=== PATIENT | female | born 1945 | race Caucasian/White ===

== ENCOUNTER 2017-07-15 11:42 | Inpatient (IN) | payer OTHER, MEDICARE ==
[~2017-07-15] VITALS: Ht 160 cm; Wt 65.9 kg
[2017-07-15 12:55] VITALS: BP 144/92
[2017-07-15] MEDS ORDERED: PANT40TA5 PO (13:55)
[2017-07-15] MEDS ORDERED: ESTR0.5T3 PO (13:56)
[2017-07-15] MEDS ORDERED: DICL50TA4 PO (13:56)
[2017-07-15] MEDS ORDERED: [UNRECOGNIZED DRUG - CODE] PO (13:56)
[2017-07-15] MEDS ORDERED: ZOLP12.52 PO (13:56)
[2017-07-15] MEDS ORDERED: PROG100C16 PO (13:58)
[2017-07-15] MEDS ORDERED: CEFAZOLIN PMX 1GM/50ML 50 ML IVPB ONE (14:00)
[2017-07-15 14:37] LABS: BASOPHILS # (AUTO) 0.03 x10^3/uL (0-0.1); BASOPHILS % (AUTO) 0 % (0-1); EOSINOPHILS # (AUTO) 1.03 x10^3/uL (0-0.4); EOSINOPHILS % (AUTO) 14 % (1-7); LYMPHOCYTES % (AUTO) 30 % (22-44); MD NO; MEAN CORPUSCULAR HEMOGLOBIN 30.8 pg (27.0-34.8); MEAN CORPUSCULAR HGB CONC 33.6 g/dL (32.4-35.8); MEAN CORPUSCULAR VOLUME 91.8 fL (80-100); MEAN PLATELET VOLUME 9.3 fL (7.4-10.4); MONOCYTES # (AUTO) 0.52 x10^3/uL (0.2-0.8); MONOCYTES % (AUTO) 7 % (2-9); NEUTROPHILS # (AUTO) 3.54 x10^3/uL (1.8-6.8); NEUTROPHILS % (AUTO) 48 % (42-75); PLATELET COUNT 220 x10^3/uL (130-400); RED BLOOD COUNT 4.61 x10^6/uL (3.82-5.3); RED CELL DISTRIBUTION WIDTH 14.6 % (9.6-15.2)
[2017-07-15] MEDS: D5%-0.45% NACL 1,000 ML IV SCH ×2 (14:38)
[2017-07-15 14:45] LABS: ANION GAP 7 mmol/L (5-15); CHLORIDE 111 mmol/L (98-107); CREATININE 0.89 mg/dL (0.55-1.02)
[2017-07-15 14:57] LABS: INTERNATIONAL NORMALIZED RATIO 0.99 (0.93-1.1); PROTHROMBIN TIME 10.2 Seconds (9.6-11.5)
[2017-07-15] MEDS ORDERED: CEFAZOLIN 1,000 MG ONE (16:46)
[2017-07-15] MEDS ORDERED: FENTANYL PF 100 MCG/2ML ONE (16:46)
[2017-07-15] MEDS ORDERED: CEFAZOLIN PMX 1GM/50ML 50 ML ONE (16:46)
[2017-07-15] MEDS ORDERED: MIDAZOLAM 1 MG/ML, 5ML ONE (16:46)
[2017-07-15] MEDS ORDERED: LIDOCAINE 2%, 10ML ONE (16:46)
[2017-07-15 18:18] VITALS: BP 164/96
[2017-07-15] MEDS ORDERED: ZOLPIDEM 10MG TABLET PO PRN (19:00)
[2017-07-15] MEDS ORDERED: DICLOFENAC 50 MG TABLET.DR PO PRN (19:00)
[2017-07-15 19:14] VITALS: BP 137/89
[2017-07-15] MEDS: ACETAMINOPHEN 325 MG TABLET PO PRN ×2 (19:29→23:43)
[2017-07-15] MEDS: SODIUM CHLORIDE FLUSH 10ML SYR IVF SCH (21:56)
[2017-07-16] MEDS: CEFAZOLIN PMX 1GM/50ML 50 ML IVPB SCH ×2 (02:11→11:13)
[2017-07-16 02:12] VITALS: BP 122/82
[2017-07-16] MEDS: ACETAMINOPHEN 325 MG TABLET PO PRN ×2 (05:04→09:37)
[2017-07-16] MEDS: D5%-0.45% NACL 1,000 ML IV SCH ×2 (06:00→14:00)
[2017-07-16 07:30] VITALS: BP 135/89
[2017-07-16] MEDS ORDERED: ESTRADIOL VALERATE PO SCH (09:00)
[2017-07-16] MEDS ORDERED: PANTOPROZOLE 40MG TABLET PO SCH (09:00)
[2017-07-16] MEDS ORDERED: PROGESTERONE 100 MG CAPSULE PO SCH (09:00)
[2017-07-16] MEDS ORDERED: ONDANSETRON ODT 4 MG ONE (09:32)
[2017-07-16] MEDS: SODIUM CHLORIDE FLUSH 10ML SYR IVF SCH (09:36)
[2017-07-16] MEDS ORDERED: ONDANSETRON ODT 4 MG PO PRN (10:00)
[2017-07-16] MEDS ORDERED: METO25TA91 PO (12:05)
[2017-07-16 13:05] VITALS: BP 130/85
== END 2017-07-16 16:00 | disposition home or self-care (01) | DRG 244 ==
LOC: 5SO 12:04 → DCLOUNGE 07-16 15:53
PROVIDERS: ADMIT Internal Medicine Cardiovascular Disease; ATTEND Internal Medicine Cardiovascular Disease
PROC: 0JH606Z Insertion of Pacemaker, Dual Chamber into Chest Subcutaneous Tissue and Fascia, Open Approach (ICD-10-PCS; principal; 2017-07-15)
PROC: 02H63JZ Insertion of Pacemaker Lead into Right Atrium, Percutaneous Approach (ICD-10-PCS; 2017-07-15)
PROC: 02HK3JZ Insertion of Pacemaker Lead into Right Ventricle, Percutaneous Approach (ICD-10-PCS; 2017-07-15)
DX: I44.2 Atrioventricular block, complete (principal); I10 Essential (primary) hypertension
CPT/HCPCS: 33208; 36415; 71045; 80048; 85025; 85610; 93005; 99156; 99157; C1779; C1785; C1892; J0690; J2250; J3010; J3490; Q0162

== ENCOUNTER → 2018-09-22 | Outpatient (CLI) | payer OTHER, MEDICARE ==
[~2018-09-22] MED LIST: DICL50TA4 PO; ESTR0.5T3 PO; METO25TA91 PO; PANT40TA5 PO; PROG100C16 PO; ZOLP12.52 PO; [UNRECOGNIZED DRUG - CODE] PO
== END | disposition home or self-care (01) ==
LOC: RAD 14:47
PROVIDERS: ATTEND Nurse Practitioner
DX: R06.02 Shortness of breath (principal)
CPT/HCPCS: 71046

== ENCOUNTER → 2019-06-01 | Outpatient (CLI) | payer OTHER, MEDICARE | END | disposition home or self-care (01) | LOC: CFH 14:52 | PROVIDERS: ATTEND Internal Medicine Cardiovascular Disease | DX: I36.1 Nonrheumatic tricuspid (valve) insufficiency (principal); I11.9 Hypertensive heart disease without heart failure | CPT/HCPCS: 93306 ==

== ENCOUNTER → 2019-10-07 | Outpatient (CLI) | payer OTHER, MEDICARE | END | disposition home or self-care (01) | LOC: RAD 13:28 | PROVIDERS: ATTEND Orthopaedic Surgery | DX: M75.121 Complete rotator cuff tear or rupture of right shoulder, not specified as traumatic (principal) ==

== ENCOUNTER 2019-10-28 10:10 | Day surgery (SDC) | payer OTHER, MEDICARE ==
[~2019-10-28] VITALS: Ht 160 cm; Wt 60.6 kg
[~2019-10-28 10:10] MED LIST changes: +ATEN50TA41 PO; +BUPIVACAINE/PF 0.25% ONE; +CHOL10003 PO; +DIAZ2TAB3 PO; +LIDOCAINE/PF 1%-EPI 1:200K, 30 ML ONE; +SERT100T32 PO; +TRIA1CAP PO; +VERA80TA25 PO
[2019-10-28] MEDS ORDERED: MIDAZOLAM 1 MG/ML, 2ML ONE (10:21)
[2019-10-28] MEDS ORDERED: FENTANYL PF 100 MCG/2ML ONE (10:21)
[2019-10-28] MEDS ORDERED: PROG100C16 PO (10:47)
[2019-10-28] MEDS ORDERED: PANT40TA5 PO (10:47)
[2019-10-28] MEDS ORDERED: ZOLP12.52 PO (10:47)
[2019-10-28] MEDS ORDERED: METO25TA35 PO (10:47)
[2019-10-28] MEDS ORDERED: DILT120T3 PO (10:47)
[2019-10-28] MEDS ORDERED: ESTRADIOL PO (10:47)
[2019-10-28] MEDS ORDERED: DICL75TA3 PO (10:47)
[2019-10-28] MEDS ORDERED: ATOR20TA37 PO (10:47)
[2019-10-28] MEDS ORDERED: LISI5TAB7 PO (10:47)
[2019-10-28] MEDS ORDERED: LACTATED RINGERS 1,000 ML IV SCH (10:52)
[2019-10-28] MEDS ORDERED: ACETAMINOPHEN 500 MG TABLET ONE (10:57)
[2019-10-28] MEDS ORDERED: CHLORHEXIDINE 15 ML UDC ONE (10:58)
[2019-10-28 10:59] VITALS: BP 132/95
[2019-10-28] MEDS ORDERED: CHLORHEXIDINE 15 ML UDC MM ONE (11:00)
[2019-10-28] MEDS ORDERED: ACETAMINOPHEN 500 MG TABLET PO ONE (11:00)
[2019-10-28 11:29] LABS: ALANINE AMINOTRANSFERASE 18 U/L (12-78); ALBUMIN 3.9 g/dL (3.4-5.0); ANION GAP 6 mmol/L (5-15); CALCIUM 9.7 mg/dL (8.5-10.1); CHLORIDE 113 mmol/L (98-107)
[2019-10-28] MEDS ORDERED: APREPITANT 40 MG CAPSULE PO ONE (11:30)
[2019-10-28 11:32] LABS: ALKALINE PHOSPHATASE 79 U/L (45-117); BILIRUBIN,TOTAL 0.5 mg/dL (0.2-1.0); CREATININE 0.87 mg/dL (0.55-1.02); TOTAL PROTEIN 6.9 g/dL (6.4-8.2)
[2019-10-28] MEDS ORDERED: PHENYLEPHRINE 10 MG/ML ONE (11:43)
[2019-10-28] MEDS ORDERED: PROMETHAZINE 12.5 MG SUPP PR PRN (12:30)
[2019-10-28] MEDS ORDERED: ONDANSETRON 2MG/ML, 2ML IVPush PRN (12:30)
[2019-10-28] MEDS ORDERED: HYDROmorphone 1 MG/ML, 1ML INJ IVPush PRN (12:30)
[2019-10-28] MEDS ORDERED: PROMETHAZINE 25 MG SUPP PR PRN (12:30)
[2019-10-28] MEDS ORDERED: HYDROcodone/APAP 7.5-325MG/15ML UDC PO PRN (12:30)
[2019-10-28] MEDS ORDERED: FENTANYL PF 100 MCG/2ML IV PRN (12:30)
[2019-10-28] MEDS ORDERED: ROCURONIUM 10MG/ML,5ML ONE (12:34)
[2019-10-28] MEDS ORDERED: DEXAMETHASONE 4 MG/ML, 1ML ONE (12:34)
[2019-10-28] MEDS ORDERED: NEOSTIGMINE 1 MG/ML, 10ML ONE (12:34)
[2019-10-28] MEDS ORDERED: PROPOFOL 10 MG/ML, 20ML ONE (12:34)
[2019-10-28] MEDS ORDERED: SUCCINYLCHOLINE 20 MG/ML, 10ML ONE (12:34)
[2019-10-28] MEDS ORDERED: GLYCOPYRROLATE 0.2MG/1ML, 5ML ONE (12:34)
[2019-10-28] MEDS ORDERED: CEFAZOLIN 1,000 MG ONE (12:34)
[2019-10-28] MEDS ORDERED: ONDANSETRON 2MG/ML, 2ML ONE (12:34)
== END 2019-10-28 14:30 | disposition home or self-care (01) ==
LOC: OUT 10:10
PROVIDERS: ATTEND Orthopaedic Surgery
DX: S46.011A Strain of muscle(s) and tendon(s) of the rotator cuff of right shoulder, initial encounter (principal); Z11.59 Encounter for screening for other viral diseases; G89.18 Other acute postprocedural pain; S46.111A Strain of muscle, fascia and tendon of long head of biceps, right arm, initial encounter; S43.431A Superior glenoid labrum lesion of right shoulder, initial encounter; M75.41 Impingement syndrome of right shoulder; I10 Essential (primary) hypertension; Z79.899 Other long term (current) drug therapy; Z87.891 Personal history of nicotine dependence; Z88.2 Allergy status to sulfonamides; Z88.5 Allergy status to narcotic agent; Z95.0 Presence of cardiac pacemaker; Z98.890 Other specified postprocedural states; Z82.49 Family history of ischemic heart disease and other diseases of the circulatory system; X58.XXXA Exposure to other specified factors, initial encounter; Y93.89 Activity, other specified; Y92.89 Other specified places as the place of occurrence of the external cause; Y99.8 Other external cause status
CPT/HCPCS: 29823; 29826; 29827; 29828; 36415; 64415; 80053; 87635; 93005; C1713; J0330; J0690; J1100; J2250; J2370; J2405; J2704; J2710; J3010; J3490; J7120; J8501